=== PATIENT | male | born 1985 | race African-American/Black ===

== ENCOUNTER 2017-09-28 15:12 | Emergency (ER) | payer BC ==
--- NOTE | 2017-09-28 16:36 | ER Document Report ---
ED Medical Screen (RME) - General Chief Complaint: High Blood Pressure Stated Complaint: BLOOD PRESSURE ISSUES Time Seen by Provider: 09/28/17 16:18 Mode of Arrival: Ambulatory Information source: Patient, Relative Notes: 31-year-old male presents with complaints of left-sided body aches high blood pressure high blood sugar. Patient notes he was dialyzed spell 5 weeks ago and symptoms have been ongoing since patient has had multiple evaluations for his complaints and notes they have been unable to completely diagnose him. Patient denies any fevers or chills notes does not have a history of high blood sugar but they did an Accu-Chek on him fasting at home and it was 170. Patient does not check his blood pressure at home I have greeted and performed a rapid initial assessment of this patient. A comprehensive ED assessment and evaluation of the patient, analysis of test results and completion of the medical decision making process will be conducted by additional ED providers. PHYSICAL EXAMINATION: GENERAL: Well-appearing, well-nourished and in no acute distress. HEAD: Atraumatic, normocephalic. EYES: Pupils equal round extraocular movements intact, conjunctiva are normal. ENT: Nares patent NECK: Normal range of motion LUNGS: No respiratory distress Musculoskeletal: Normal range of motion NEUROLOGICAL: Normal speech, normal gait. PSYCH: Normal mood, normal affect. SKIN: Warm, Dry, normal turgor, no rashes or lesions noted. TRAVEL OUTSIDE OF THE [place] IN LAST 30 DAYS: No - Related Data Allergies/Adverse Reactions: acetaminophen [From Percocet] Allergy (Intermediate, Verified 09/28/17 16:22) Hives oxycodone [From Percocet] Allergy (Intermediate, Verified 09/28/17 16:22) Hives Past Medical History - Social History Chew tobacco use (# tins/day): No Frequency of alcohol use: Rare Drug Abuse: None - Past Medical History Cardiac Medical History: Reports: Hx Hypertension Pulmonary Medical History: Reports: Hx Asthma - sports related Renal/ Medical History: Denies: Hx Peritoneal Dialysis Past Surgical History: Reports: Hx Orthopedic Surgery - left shoulder Physical Exam - Vital signs Vitals: Temp Pulse Resp BP Pulse Ox 98.7 F 89 17 150/89 H 97 09/28/17 15:17 09/28/17 15:17 09/28/17 15:17 09/28/17 15:17 09/28/17 15:17 Course - Vital Signs Vital signs: Temp Pulse Resp BP Pulse Ox 98.7 F 89 17 150/89 H 97 09/28/17 15:17 09/28/17 15:17 09/28/17 16:08 09/28/17 15:17 09/28/17 15:17
[2017-09-28 17:14] LABS: APPEARANCE,URINE CLEAR; BILIRUBIN,URINE NEGATIVE (NEGATIVE); COLOR,URINE YELLOW; GLUCOSE, URINE NEGATIVE (NEGATIVE); KETONES,URINE NEGATIVE (NEGATIVE); LEUKOCYTE ESTERASE,URINE NEGATIVE (NEGATIVE); NITRITE,URINE NEGATIVE (NEGATIVE); PROTEIN,URINE NEGATIVE (NEGATIVE); URINE SPECIFIC GRAVITY 1.023
[2017-09-28 18:00] LABS: ABSOLUTE BASOPHILS # (AUTO) 0.1 10^3/uL (0.0-0.2); ABSOLUTE EOSINOPHILS # (AUTO) 0.2 10^3/uL (0.0-0.6); ABSOLUTE LYMPHOCYTES (AUTO) 2.7 10^3/uL (0.5-4.7); ABSOLUTE MONOCYTES (AUTO) 0.7 10^3/uL (0.1-1.4); ABSOLUTE NEUT (AUTO) 4.4 10^3/uL (1.7-8.2); BASOPHILS % (AUTO) 1.2 % (0-2); EOSINOPHILS % (AUTO) 2.3 % (0-6); HEMATOCRIT 45.2 % (37.9-51.0); HEMOGLOBIN 15.4 g/dL (13.5-17.0); LYMPHOCYTES % (AUTO) 33.6 % (13-45); MEAN CORPUSCULAR HEMOGLOBIN 27.5 pg (27.0-33.4); MEAN CORPUSCULAR HGB CONC 34.2 g/dL (32.0-36.0); MEAN CORPUSCULAR VOLUME 81 fl (80-97); MONOCYTES % (AUTO) 8.2 % (3-13); PLATELET COUNT 248 10^3/uL (150-450); RED BLOOD COUNT 5.61 10^6/uL (4.35-5.55); RED CELL DISTRIBUTION WIDTH 12.2 % (11.5-14.0); SEGMENTED NEUTROPHILS % (AUTO) 54.7 % (42-78); TOTAL CELLS COUNTED % (AUTO) 100 %
--- NOTE | 2017-09-28 18:00 | ER Document Report ---
ED General - General Chief Complaint: High Blood Pressure Stated Complaint: BLOOD PRESSURE ISSUES Time Seen by Provider: 09/28/17 16:18 Mode of Arrival: Ambulatory Information source: Patient Notes: Patient is a very kind 31-year-old male with high blood pressure who was recently started on his lisinopril around 1 month ago. Patient states he is complaining of 2 separate pains. Patient states for many months he has had some left posterior lateral neck pain radiating to his left trapezius. He states 2-3 days ago he felt some numbness "shooting" down his left arm. He denies any weakness. He states the numbness has improved. Patient also states yesterday he felt a "cramp" in his left anterior thigh. He states that this too has improved. He states that "spasms". He denies any weakness to the lower extremities as well. He denies any swelling or erythema. He states that the spasm has improved. Patient denies any testicular pain or swelling, dysuria , or back pain. TRAVEL OUTSIDE OF THE [place] IN LAST 30 DAYS: No - HPI Onset: Other - See above Onset/Duration: Sudden Quality of pain: Burning Severity: Moderate Pain Level: Denies Associated symptoms: Other - See above Exacerbated by: Denies Relieved by: Denies Similar symptoms previously: No Recently seen / treated by doctor: No - Related Data Allergies/Adverse Reactions: acetaminophen [From Percocet] Allergy (Intermediate, Verified 09/28/17 16:22) Hives oxycodone [From Percocet] Allergy (Intermediate, Verified 09/28/17 16:22) Hives Past Medical History - General Information source: Patient, Relative - Social History Smoking Status: Never Smoker Cigarette use (# per day): No Chew tobacco use (# tins/day): No Smoking Education Provided: No Frequency of alcohol use: Rare Drug Abuse: None Family History: Reviewed & Not Pertinent Patient has suicidal ideation: No Patient has homicidal ideation: No - Past Medical History Cardiac Medical History: Reports: Hx Hypertension Pulmonary Medical History: Reports: Hx Asthma - sports related Renal/ Medical History: Denies: Hx Peritoneal Dialysis Past Surgical History: Reports: Hx Orthopedic Surgery - left shoulder Review of Systems - Review of Systems Constitutional: denies: Fever EENT: denies: Eye discharge, Nose discharge Respiratory: denies: Short of breath Gastrointestinal: denies: Vomiting Genitourinary: denies: Dysuria Musculoskeletal: denies: Leg swelling Skin: Other - no hives. denies: Rash Neurological/Psychological: Other - no slurred speech -: Yes All other systems reviewed and negative Physical Exam - Vital signs Vitals: Temp Pulse Resp BP Pulse Ox 98.7 F 89 17 150/89 H 97 09/28/17 15:17 09/28/17 15:17 09/28/17 15:17 09/28/17 15:17 09/28/17 15:17 Notes: Reviewed vital signs and nursing note as charted by RN. CONSTITUTIONAL: Alert and oriented and responds appropriately to questions. Well -appearing; well-nourished HEAD: Normocephalic; atraumatic EYES: PERRL ENT: Normal nose; no rhinorrhea; moist mucous membranes; pharynx without lesions noted NECK: Supple without meningismus; non-tender to the midline cervical spine. There is some mild left-sided paraspinal tenderness radiating into the trapezius muscle without swelling or erythema; no cervical lymphadenopathy, no masses CARD: Regular rate and rhythm; no murmurs, symmetric distal pulses RESP: Normal chest excursion without splinting or tachypnea; breath sounds clear and equal bilaterally ABD/GI: Normal bowel sounds; non-distended; soft, non-tender BACK: The back appears normal and is non-tender to palpation EXT: Normal ROM in all joints; non-tender to palpation of all joints and muscular regions; no joint swelling; no cyanosis, no effusions, no edema SKIN: No acute lesions noted NEURO: Moves all extremities equally; patient has 5 out of 5 bilateral upper and lower extremity strength with sensation intact all 4 extremities PSYCH: The patient's mood and manner are appropriate. Grooming and personal hygiene are appropriate. Course - Re-evaluation Re-evalutation: 09/28/17 18:01 Given the history and physical examination, we will obtain basic labs, magnesium level, and x-ray of the cervical spine, and a total CK. Given the lack of any weakness or numbness at this time, with some left lateral neck pain for a few months with some radiation down the left arm only, I do believe that this is most likely radicular in nature. Patient has no weakness, joint swelling, tenderness to palpation of the muscular regions, and with a recent onset of lisinopril I would like to check the patient's electrolytes and magnesium level. Patient has no headache, with a blood pressure as recorded. Given the lack of any obvious swelling, calf pain, recent trips or travel, chest pain or shortness of breath, I do believe DVT/PE to be unlikely. 09/28/17 18:44 Labs as recorded. No obvious acute abnormality on the cervical spine x-ray. Patient still has no joint pain or swelling. Still no numbness or weakness currently. Given the above history and physical examination I believe it is reasonable to continue the lisinopril with strict return precautions. I have referred the patient to orthopedics. 09/28/17 19:04 X-ray of the cervical spine as recorded. - Vital Signs Vital signs: Temp Pulse Resp BP Pulse Ox 98.7 F 89 17 150/89 H 97 09/28/17 15:17 09/28/17 15:17 09/28/17 16:08 09/28/17 15:17 09/28/17 15:17 - Laboratory Result Diagrams: 09/28/17 17:48 09/28/17 17:48 Laboratory results interpreted by me: 09/28/17 09/28/17 09/28/17 16:45 17:48 17:48 RBC 5.61 H Alkaline Phosphatase 144 H Creatine Kinase 502 H Urine Urobilinogen 4.0 H Discharge - Discharge Clinical Impression: Radicular pain in left arm, Left thigh pain Condition: Good Disposition: HOME, SELF-CARE Additional Instructions: Please stay well-hydrated. Please come back immediately for any increased pain , change in location or quality of pain, leg swelling, weakness, or any other acute problems. Please follow-up with your primary care physician as we have discussed. Referrals: PILLO ROBERTSON I, DO [Primary Care Provider] - Follow up as needed SHAHBAZ VALENTIN MD [ACTIVE STAFF] - Follow up as needed
[2017-09-28 18:20] LABS: ALANINE AMINOTRANSFERASE 62 U/L (21-72); ALBUMIN 4.8 g/dL (3.5-5.0); ALKALINE PHOSPHATASE 144 U/L (38-126); ANION GAP 13 (5-19); ASPARTATE AMINO TRANSFERASE 40 U/L (17-59); BILIRUBIN,DIRECT 0.4 mg/dL (0.0-0.4); BILIRUBIN,TOTAL 0.6 mg/dL (0.2-1.3); BLOOD UREA NITROGEN 16 mg/dL (7-20); CALCIUM 9.8 mg/dL (8.4-10.2); CARBON DIOXIDE 26 mmol/L (22-30); CHLORIDE 105 mmol/L (98-107); CREATINE KINASE 502 U/L (55-170); GLUCOSE 93 mg/dL (75-110); SODIUM 143.9 mmol/L (137-145); TOTAL PROTEIN 7.7 g/dL (6.3-8.2)
[2017-09-28] MEDS ORDERED: NORMAL SALINE 1000 ML 1,000 ML IV ONE (18:28)
--- NOTE | 2017-09-28 18:45 | RADIOLOGY REPORT (SQ) ---
EXAM DESCRIPTION: CERV SP 4 OR 5 VIEWS COMPLETED DATE/TIME: 09/28/2017 6:35 pm REASON FOR STUDY: 9; left lateral neck pain with radiculopathy COMPARISON: None. NUMBER OF VIEWS: Five views. TECHNIQUE: AP, lateral, obliques and odontoid radiographic images acquired of the cervical spine. LIMITATIONS: None. FINDINGS: MINERALIZATION: Normal. ALIGNMENT: Anatomic. VERTEBRAE: Vertebral bodies of normal height. DISCS: No significant osteophytes or sclerosis. Disc height maintained. FORAMINA: No osteophytes or foraminal narrowing. LATERAL AND POSTERIOR ELEMENTS: Facets, lateral masses and spinous processes without significant find ings. HARDWARE: None in the spine. SOFT TISSUES: No masses or calcifications. Lung apices clear. OTHER: No other significant finding. IMPRESSION: NO SIGNIFICANT RADIOGRAPHIC FINDING IN THE CERVICAL SPINE. TECHNICAL DOCUMENTATION: JOB ID: [id number] [employer]- All Rights Reserved Reading location - IP/workstation name: [email or web address]
[2017-09-28 19:38] VITALS: BP 167/87
== END 2017-09-28 19:48 | disposition home or self-care (01) ==
LOC: ER 15:12
DX: R03.0 Elevated blood-pressure reading, without diagnosis of hypertension (principal); M79.602 Pain in left arm; M79.652 Pain in left thigh; Z88.6 Allergy status to analgesic agent
CPT/HCPCS: 99284; 96360; 36415; 82550; 83735; 85025; 80053; 81001; 83036; 72050; J7030